=== PATIENT | female | born 1960 | race African-American/Black ===

== ENCOUNTER 2022-10-20 08:47 | Outpatient (CLI) | payer MEDICARE ==
[~2022-10-20 08:47] MED LIST: Iopamidol 300 61% 100 ML VIAL FS ONE
== END 2022-10-20 08:48 | disposition home or self-care (01) ==
LOC: CSHCT 08:47
PROVIDERS: ATTEND Specialist
DX: K43.2 Incisional hernia without obstruction or gangrene (principal); K43.9 Ventral hernia without obstruction or gangrene
CPT/HCPCS: 74177; 82565; Q9967

== ENCOUNTER 2023-05-19 10:15 | Outpatient (CLI) | payer MEDICARE | END 2023-05-19 10:16 | disposition home or self-care (01) | LOC: CSHWCC 10:15 | PROVIDERS: ATTEND Preventive Medicine Undersea and Hyperbaric Medicine | DX: T81.32XS Disruption of internal operation (surgical) wound, not elsewhere classified, sequela (principal); T81.42XD Infection following a procedure, deep incisional surgical site, subsequent encounter; E66.01 Morbid (severe) obesity due to excess calories; E11.8 Type 2 diabetes mellitus with unspecified complications | CPT/HCPCS: 99211; G0463 ==

== ENCOUNTER 2023-05-20 09:38 | Outpatient (CLI) | payer MEDICARE | END 2023-05-20 09:39 | disposition home or self-care (01) | LOC: CSHWCC 09:38 | PROVIDERS: ATTEND Preventive Medicine Undersea and Hyperbaric Medicine | DX: T81.42XD Infection following a procedure, deep incisional surgical site, subsequent encounter (principal); T81.32XD Disruption of internal operation (surgical) wound, not elsewhere classified, subsequent encounter; E11.8 Type 2 diabetes mellitus with unspecified complications; E66.01 Morbid (severe) obesity due to excess calories | CPT/HCPCS: 97605 ==

== ENCOUNTER 2023-05-27 08:58 | Outpatient (CLI) | payer MEDICARE | END 2023-05-27 08:59 | disposition home or self-care (01) | LOC: CSHWCC 08:58 | PROVIDERS: ATTEND Preventive Medicine Undersea and Hyperbaric Medicine | DX: T81.32XS Disruption of internal operation (surgical) wound, not elsewhere classified, sequela (principal); T81.42XD Infection following a procedure, deep incisional surgical site, subsequent encounter; E11.8 Type 2 diabetes mellitus with unspecified complications; E66.01 Morbid (severe) obesity due to excess calories | CPT/HCPCS: 97605 ==

== ENCOUNTER 2023-06-01 09:55 | Outpatient (CLI) | payer MEDICARE | END 2023-06-01 09:56 | disposition home or self-care (01) | LOC: CSHWCC 09:55 | PROVIDERS: ATTEND Physician Assistant | DX: T81.42XD Infection following a procedure, deep incisional surgical site, subsequent encounter (principal); T81.32XS Disruption of internal operation (surgical) wound, not elsewhere classified, sequela; E11.8 Type 2 diabetes mellitus with unspecified complications; E66.01 Morbid (severe) obesity due to excess calories | CPT/HCPCS: 97605 ==

== ENCOUNTER 2023-06-07 15:26 | Outpatient (CLI) | payer MEDICARE | END 2023-06-07 15:27 | disposition home or self-care (01) | LOC: CSHWCC 15:26 | PROVIDERS: ATTEND Physician Assistant | DX: T81.42XD Infection following a procedure, deep incisional surgical site, subsequent encounter (principal); T81.32XS Disruption of internal operation (surgical) wound, not elsewhere classified, sequela; E11.8 Type 2 diabetes mellitus with unspecified complications; E66.01 Morbid (severe) obesity due to excess calories | CPT/HCPCS: 99213; G0463 ==

== ENCOUNTER 2023-06-08 12:44 | Outpatient (CLI) | payer MEDICARE | END 2023-06-08 12:45 | disposition home or self-care (01) | LOC: CSHWCC 12:44 | PROVIDERS: ATTEND Physician Assistant | DX: T81.42XD Infection following a procedure, deep incisional surgical site, subsequent encounter (principal); T81.32XS Disruption of internal operation (surgical) wound, not elsewhere classified, sequela; E11.8 Type 2 diabetes mellitus with unspecified complications; E66.01 Morbid (severe) obesity due to excess calories | CPT/HCPCS: 97608 ==

== ENCOUNTER 2023-06-15 08:54 | Outpatient (CLI) | payer MEDICARE | END 2023-06-15 08:55 | disposition home or self-care (01) | LOC: CSHWCC 08:54 | PROVIDERS: ATTEND Nurse Practitioner Family | DX: T81.32XS Disruption of internal operation (surgical) wound, not elsewhere classified, sequela (principal); T81.42XD Infection following a procedure, deep incisional surgical site, subsequent encounter; E11.8 Type 2 diabetes mellitus with unspecified complications; E66.01 Morbid (severe) obesity due to excess calories | CPT/HCPCS: 97607 ==

== ENCOUNTER 2023-06-22 10:29 | Outpatient (CLI) | payer MEDICARE | END 2023-06-22 10:30 | disposition home or self-care (01) | LOC: CSHWCC 10:29 | PROVIDERS: ATTEND Nurse Practitioner Family | DX: T81.42XD Infection following a procedure, deep incisional surgical site, subsequent encounter (principal); T81.32XS Disruption of internal operation (surgical) wound, not elsewhere classified, sequela; E11.8 Type 2 diabetes mellitus with unspecified complications; E66.01 Morbid (severe) obesity due to excess calories | CPT/HCPCS: 11042 ==

== ENCOUNTER 2023-07-06 10:11 | Outpatient (CLI) | payer MEDICARE | END 2023-07-06 10:12 | disposition home or self-care (01) | LOC: CSHWCC 10:11 | PROVIDERS: ATTEND Nurse Practitioner Family | DX: T81.42XD Infection following a procedure, deep incisional surgical site, subsequent encounter (principal); T81.32XS Disruption of internal operation (surgical) wound, not elsewhere classified, sequela; E11.8 Type 2 diabetes mellitus with unspecified complications; E66.01 Morbid (severe) obesity due to excess calories | CPT/HCPCS: 11042 ==